=== PATIENT | female | born 1955 | race Caucasian/White ===

== ENCOUNTER 2019-01-27 11:19 | Emergency (ER) | payer SELFPAY ==
--- NOTE | 2019-01-27 11:39 | ER Document Report ---
ED Medical Screen (RME) - General Chief Complaint: Hip Pain Stated Complaint: HIP PAIN Time Seen by Provider: 01/27/19 11:35 Mode of Arrival: Wheelchair Information source: Patient Notes: 63-year-old diabetic patient that just moved to the area last night presents to the emergency department with right hip pain since last March. Reports she is been to multiple providers in [place] for this hip pain. X-rays have been done and nothing is broken. Denies recent trauma. Reports in March she broke some toes on her left foot and that is when the problem started. I have greeted and performed a rapid initial assessment of this patient. A comprehensive ED assessment and evaluation of the patient, analysis of test results and completion of the medical decision making process will be conducted by additional ED providers. Dictation of this chart was performed using voice recognition software; therefore, there may be some unintended grammatical errors. - Related Data Allergies/Adverse Reactions: Penicillins Allergy (Verified 01/27/19 11:29) VOMITING Physical Exam - Vital signs Vitals: Temp Pulse BP Pulse Ox 97.4 F 93 147/80 H 96 01/27/19 11:24 01/27/19 11:24 01/27/19 11:24 01/27/19 11:24 Course - Vital Signs Vital signs: Temp Pulse Resp BP Pulse Ox 97.4 F 93 147/80 H 96 01/27/19 11:24 01/27/19 11:24 01/27/19 11:24 01/27/19 11:24
--- NOTE | 2019-01-27 12:21 | ER Document Report ---
ED Medical Screen (RME) - General Chief Complaint: Hip Pain Stated Complaint: HIP PAIN Time Seen by Provider: 01/27/19 11:35 Mode of Arrival: Wheelchair Notes: 63-year-old female with [id number] diabetes mellitus, hypertension, hyperlipidemia, arthritis, COPD presents to the emergency department with acute on chronic right hip pain. Patient just arrived from [place] last night and states that she has had imaging done on the hip since a fall in March but never got results. Patient states that she did fall in March, broke 3 of her left toes, and has not felt right since. Patient does walk with a walker but per son it takes "a long time" for her to even walk across the room. Patient states that she hears a pop and feels crepitus every time she moves the hip. Also, she complains of dizziness and lightheadedness every time she sits up. Patient has not taken any of her medications for her chronic conditions other than metformin and glipizide for her diabetes. Exam: Well-appearing in no acute distress laying on the stretcher, acute tenderness to palpation of the right hip, regular cardiac rate and rhythm, trace bilateral lower extremity pitting edema I have greeted and performed a rapid initial assessment of this patient. A comprehensive ED assessment and evaluation of the patient, analysis of test results and completion of medical decision making process will be conducted by an additional ED providers. TRAVEL OUTSIDE OF THE [place] IN LAST 30 DAYS: No - Related Data Allergies/Adverse Reactions: Penicillins Allergy (Verified 01/27/19 11:29) VOMITING Home Medications: [facility]/ Past Medical History - Social History Chew tobacco use (# tins/day): No Frequency of alcohol use: Rare Drug Abuse: None Physical Exam - Vital signs Vitals: Temp Pulse BP Pulse Ox 97.4 F 93 147/80 H 96 01/27/19 11:24 01/27/19 11:24 01/27/19 11:24 01/27/19 11:24 Course - Vital Signs Vital signs: Temp Pulse Resp BP Pulse Ox 97.4 F 93 147/80 H 96 01/27/19 11:24 01/27/19 11:24 01/27/19 11:24 01/27/19 11:24
--- NOTE | 2019-01-27 12:50 | RADIOLOGY REPORT (SQ) ---
EXAM DESCRIPTION: HIP RIGHT AP/LATERAL COMPLETED DATE/TIME: 01/27/2019 12:41 pm REASON FOR STUDY: hip pain, difficulty walking COMPARISON: None. NUMBER OF VIEWS: Two views. TECHNIQUE: AP and frog-leg view of the right hip. LIMITATIONS: None. FINDINGS: MINERALIZATION: Normal. RIGHT HIP: There is complete loss of the joint space. There is remodeling of the femoral head. Find ings are consistent with avascular necrosis. OPPOSITE HIP: No fracture or dislocation. No worrisome bone lesions. SOFT TISSUES: No findings. OTHER: No other significant finding. 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 Complet e loss of joint space. TECHNICAL DOCUMENTATION: JOB ID: [id number] [employer]- All Rights Reserved Reading location - IP/workstation name: [email or web address]
[2019-01-27 13:39] LABS: ABSOLUTE EOSINOPHILS # (AUTO) 0.1 10^3/uL (0.0-0.6); ABSOLUTE MONOCYTES (AUTO) 0.3 10^3/uL (0.1-1.4); ABSOLUTE NEUT (AUTO) 5.2 10^3/uL (1.7-8.2); BASOPHILS % (AUTO) 0.7 % (0-2); HEMATOCRIT 29.8 % (36.0-47.0); HEMOGLOBIN 9.2 g/dL (12.0-15.5); LYMPHOCYTES % (AUTO) 14.5 % (13-45); MEAN CORPUSCULAR HEMOGLOBIN 22.4 pg (27.0-33.4); MEAN CORPUSCULAR VOLUME 72 fl (80-97); MONOCYTES % (AUTO) 4.8 % (3-13); PLATELET COUNT 328 10^3/uL (150-450); RED BLOOD COUNT 4.11 10^6/uL (3.72-5.28); RED CELL DISTRIBUTION WIDTH 19.5 % (11.5-14.0); TOTAL CELLS COUNTED % (AUTO) 100 %; WHITE BLOOD COUNT 6.5 10^3/uL (4.0-10.5)
[2019-01-27 14:02] LABS: ALBUMIN 3.3 g/dL (3.5-5.0); ALKALINE PHOSPHATASE 89 U/L (38-126); ANION GAP 10 (5-19); ASPARTATE AMINO TRANSFERASE 16 U/L (14-36); BILIRUBIN,DIRECT 0.1 mg/dL (0.0-0.4); BILIRUBIN,TOTAL 0.2 mg/dL (0.2-1.3); BLOOD UREA NITROGEN 10 mg/dL (7-20); CALCIUM 9.4 mg/dL (8.4-10.2); CARBON DIOXIDE 24 mmol/L (22-30); CHLORIDE 108 mmol/L (98-107); GLUCOSE 207 mg/dL (75-110); POTASSIUM 3.8 mmol/L (3.6-5.0); TOTAL PROTEIN 6.3 g/dL (6.3-8.2)
--- NOTE | 2019-01-27 14:11 | RADIOLOGY REPORT (SQ) ---
EXAM DESCRIPTION: CT RT LOWER EXTREMITY WITHOUT COMPLETED DATE/TIME: 01/27/2019 1:59 pm REASON FOR STUDY: Concern avascular necrosis COMPARISON: CONVENTIONAL RADIOGRAPHS OBTAINED EARLIER THE SAME DAY. TECHNIQUE: CT scan of the right hip performed without intravenous or oral contrast. Images reviewed with soft tissue and bone windows. Reconstructed coronal and sagittal MPR images reviewed. All jamari ges stored on PACS. All CT scanners at this facility use dose modulation, iterative reconstruction, and/or weight based d osing when appropriate to reduce radiation dose to as low as reasonably achievable (ALARA). [facility]: Dose Right [facility]: CareDose [facility]: Dose Right [facility]: Teradose 4D [facility]: [employer] RADIATION DOSE: CT Rad equipment meets quality standard of care and radiation dose reduction techniq ues were employed. CTDIvol: 6.0 mGy. DLP: 214 mGy-cm. mGy. LIMITATIONS: None. FINDINGS: PELVIC BONES: No acute fracture. No worrisome bone lesions. VISUALIZED SPINE: No acute findings. SYMPTOMATIC HIP: There is flattening of the femoral head. There is complete loss of the joint space. Findings most likely represent chronic AVN. This can be confirmed with MRI. OPPOSITE HIP: No acute fracture or dislocation. No worrisome bone lesions. PELVIC SOFT TISSUES: No significant findings. EXTRAPELVIC SOFT TISSUES: No significant findings. OTHER: No other significant finding. IMPRESSION: Severe degenerative changes in the right hip. Findings are most consistent with chronic AVN. TECHNICAL DOCUMENTATION: JOB ID: [id number] Quality ID # [id number]: Final reports with documentation of one or more dose reduction techniques (e.g., Au tomated exposure control, adjustment of the mA and/or kV according to patient size, use of iterative reconstruction technique) 2010 [employer]- All Rights Reserved Reading location - IP/workstation name: [email or web address]
[2019-01-27 14:13] LABS: NT PRO BNP 439 pg/mL (<125)
[2019-01-27 14:14] LABS: TROPONIN I < 0.012 ng/mL
--- NOTE | 2019-01-27 14:58 | ER Document Report ---
ED Hip Pain/Injury - General Chief Complaint: Hip Pain Stated Complaint: HIP PAIN Time Seen by Provider: 01/27/19 11:35 Mode of Arrival: Wheelchair Notes: 63-year-old female with [id number]-rpepaexwc diabetes mellitus, hypertension, hyperlipidemia, arthritis, COPD presents to the emergency department with acute on chronic right hip pain. Patient just arrived from [place] last night and states that she has had imaging done on the hip since a fall in March but never got results. Patient states that she did fall in March, broke 3 of her left toes, and has not felt right since. Patient does walk with a walker but per son it takes "a long time" for her to even walk across the room. Patient states that she hears a pop and feels crepitus every time she moves the hip. Also, she complains of dizziness and lightheadedness every time she sits up. Patient has not taken any of her medications for her chronic conditions other than metformin and glipizide for her diabetes. TRAVEL OUTSIDE OF THE [place] IN LAST 30 DAYS: No - Related Data Allergies/Adverse Reactions: Penicillins Allergy (Verified 01/27/19 11:29) VOMITING Home Medications: [facility]/ Past Medical History - General Information source: Patient - Social History Smoking Status: Former Smoker Chew tobacco use (# tins/day): No Frequency of alcohol use: Rare Drug Abuse: None Family History: None Patient has suicidal ideation: No Patient has homicidal ideation: No - Past Medical History Cardiac Medical History: Reports: Hx Hypertension Pulmonary Medical History: Reports: Hx Bronchitis, Hx COPD Musculoskeletal Medical History: Reports Hx Arthritis Past Surgical History: Reports: Hx Oral Surgery, Hx Tubal Ligation Review of Systems - Review of Systems Constitutional: See HPI EENT: No symptoms reported Cardiovascular: See HPI Respiratory: See HPI Gastrointestinal: See HPI Genitourinary: No symptoms reported Female Genitourinary: No symptoms reported Musculoskeletal: See HPI Skin: No symptoms reported Hematologic/Lymphatic: No symptoms reported Neurological/Psychological: No symptoms reported Physical Exam - Vital signs Vitals: Temp Pulse BP Pulse Ox 97.4 F 93 147/80 H 96 01/27/19 11:24 01/27/19 11:24 01/27/19 11:24 01/27/19 11:24 - Notes Notes: PHYSICAL EXAMINATION: Reviewed vital signs and charting by RN GENERAL: Alert, interacts well. No acute distress. HEAD: Normocephalic, atraumatic. EYES: Pupils equal and round. Extraocular movements intact. ENT: Oral mucosa moist, tongue midline. NECK: Full range of motion. Trachea midline. LUNGS: Clear to auscultation bilaterally, no wheezes, rales, or rhonchi. No respiratory distress. HEART: Regular rate and rhythm. No murmur ABDOMEN: soft, non-tender. No distention. Bowel sounds present EXTREMITIES: Very limited range of motion with the right lower extremity, pat ient with significant difficulty ambulating with a cane but I did not watch her ambulate acute tenderness to palpation over the greater trochanter, 2+ DP pulse, skin is warm and dry, sensation intact light touch, brisk cap refill right toes PSYCH: Normal affect, normal mood. SKIN: Warm, dry, normal turgor. No rashes or lesions noted. Course - Re-evaluation Re-evalutation: 01/27/19 14:55 Patient presents after just flying in from [place] last night with acute hip pain prompting her son to get her seen. An initial hip x-ray was ordered in triage and she was complaining of lightheadedness so I added some basic lab work. Patient does have a microcytic anemia which is most likely chronic in nature, hemoglobin 9.3. No electrolyte derangements. Patient states that she is not taking her levothyroxine, antihypertensives, or her diabetic medications for quite some time so I am going to give her a 2-week supply of her lev othyroxine and diabetic medication since she knows all of her dosing. A CT of the extremity was ordered which did show an avascular necrosis. I spoke with Dr. Keller, orthopedist, who wants to see the patient in his office as soon as possible. Information has been provided. I did add a TSH to her lab work and it is still pending. 01/27/19 15:43 TSH was 3.95, BNP was 435 which could explain the bilateral lower extremity pitting edema. I have explained all of these findings to the patient and given her information for Dr. Keller, education on all of the things we found today, patient understands and agrees to the plan. She is stable for discharge. - Vital Signs Vital signs: Temp Pulse Resp BP Pulse Ox 97.4 F 93 147/80 H 96 11/13/19 11:24 01/27/19 11:24 01/27/19 11:24 01/27/19 11:24 - Laboratory Result Diagrams: 01/27/19 13:02 01/27/19 13:02 Laboratory results interpreted by me: 01/27/19 01/27/19 01/27/19 13:02 13:02 13:02 Hgb 9.2 L Hct 29.8 L MCV 72 L MCH 22.4 L MCHC 31.0 L RDW 19.5 H Seg Neutrophils % 79.0 H Chloride 108 H Glucose 207 H NT-Pro-B Natriuret Pep 439 H Albumin 3.3 L Discharge - Discharge Clinical Impression: Osteonecrosis of right hip, Weakness Anemia Qualifiers: Anemia type: unspecified type Qualified Code(s): D64.9 - Anemia, unspecified Condition: Good Disposition: HOME, SELF-CARE Additional Instructions: You were seen in the emergency department this afternoon for right hip pain after imaging your leg it shows that you have a condition called avascular necrosis. This is not an emergent surgical condition but it is important that you follow-up promptly with orthopedics. I have provided information for Dr. Keller below. I have also provided you with crutches and it is important that you do not bear full weight on your leg if any at all. Also, I have given you a 2-week refill on some of your prescriptions. Of note, your TSH level was normal here today. Your blood sugar was elevated. You will have to establish primary care to manage her hypertension. Please return to the emergency department if you develop acute shortness of breath, severe crushing chest pain, intractable nausea or vomiting, you pass out, or you have any other concerning symptoms. Prescriptions: Glyburide [Diabeta 5 mg Tablet] 5 mg PO BID #28 tablet Levothyroxine Sodium 150 mcg PO DAILY #14 tablet Metformin HCl 850 mg PO DAILY #28 tablet Referrals: ELI KELLER JR, DO [ACTIVE PROVISIONAL STAFF] - 01/28/19 9:00 am
[2019-01-27 16:04] VITALS: BP 150/82
--- NOTE | 2019-01-27 23:33 | EKG REPORT ---
SEVERITY:- ABNORMAL ECG - UNKNOWN RHYTHM, IRREGULAR RATE 82-165 CONSIDER LEFT VENTRICULAR HYPERTROPHY PROLONGED QT INTERVAL : Confirmed by: Viola Kang MD 27-Jan-2019 23:31:44
== END 2019-01-27 16:12 | disposition home or self-care (01) ==
LOC: ER 11:19
DX: M87.9 Osteonecrosis, unspecified (principal); R53.1 Weakness; D64.9 Anemia, unspecified; M25.551 Pain in right hip; E11.9 Type 2 diabetes mellitus without complications; I10 Essential (primary) hypertension; E78.5 Hyperlipidemia, unspecified; J44.9 Chronic obstructive pulmonary disease, unspecified; Z79.4 Long term (current) use of insulin; Z88.0 Allergy status to penicillin; Z98.51 Tubal ligation status
CPT/HCPCS: 36415; 80053; 83880; 84443; 84484; 85025; 93005; 93010

== ENCOUNTER → 2019-05-26 | Outpatient (CLI) | payer BC ==
[2019-05-26 13:55] LABS: ABSOLUTE EOSINOPHILS # (AUTO) 0.1 10^3/uL (0.0-0.6); ABSOLUTE LYMPHOCYTES (AUTO) 1.3 10^3/uL (0.5-4.7); ABSOLUTE MONOCYTES (AUTO) 0.3 10^3/uL (0.1-1.4); ABSOLUTE NEUT (AUTO) 3.9 10^3/uL (1.7-8.2); BASOPHILS % (AUTO) 0.6 % (0-2); EOSINOPHILS % (AUTO) 1.9 % (0-6); HEMATOCRIT 35.7 % (36.0-47.0); HEMOGLOBIN 12.1 g/dL (12.0-15.5); LYMPHOCYTES % (AUTO) 23.1 % (13-45); MEAN CORPUSCULAR HEMOGLOBIN 29.1 pg (27.0-33.4); MEAN CORPUSCULAR HGB CONC 33.8 g/dL (32.0-36.0); MEAN CORPUSCULAR VOLUME 86 fl (80-97); MONOCYTES % (AUTO) 5.7 % (3-13); PLATELET COUNT 301 10^3/uL (150-450); RED BLOOD COUNT 4.15 10^6/uL (3.72-5.28); RED CELL DISTRIBUTION WIDTH 16.8 % (11.5-14.0); SEGMENTED NEUTROPHILS % (AUTO) 68.7 % (42-78); TOTAL CELLS COUNTED % (AUTO) 100 %; WHITE BLOOD COUNT 5.7 10^3/uL (4.0-10.5)
[2019-05-26 14:01] LABS: APPEARANCE,URINE SLIGHTLY-CLOUDY; BILIRUBIN,URINE NEGATIVE (NEGATIVE); COLOR,URINE YELLOW; GLUCOSE, URINE NEGATIVE (NEGATIVE); KETONES,URINE NEGATIVE (NEGATIVE); LEUKOCYTE ESTERASE,URINE TRACE (NEGATIVE); NITRITE,URINE NEGATIVE (NEGATIVE); PROTEIN,URINE NEGATIVE (NEGATIVE); URINE SPECIFIC GRAVITY 1.019; UROBILINOGEN,URINE NEGATIVE mg/dL (<2.0)
--- NOTE | 2019-05-26 14:02 | RADIOLOGY REPORT (SQ) ---
EXAM DESCRIPTION: CHEST PA/LATERAL COMPLETED DATE/TIME: 05/26/2019 1:47 pm REASON FOR STUDY: PRE-OP COMPARISON: None. EXAM PARAMETERS: NUMBER OF VIEWS: two views TECHNIQUE: Digital Frontal and Lateral radiographic views of the chest acquired. RADIATION DOSE: NA LIMITATIONS: none FINDINGS: LUNGS AND PLEURA: No opacities, masses or pneumothorax. No pleural effusion. MEDIASTINUM AND HILAR STRUCTURES: No masses or contour abnormalities. HEART AND VASCULAR STRUCTURES: Heart normal size. No evidence for failure. BONES: Multiple healed upper right rib fractures. HARDWARE: None in the chest. OTHER: Moderate size hiatal hernia. IMPRESSION: Hiatal hernia. No other significant findings. TECHNICAL DOCUMENTATION: JOB ID: [id number] 2010 [employer]- All Rights Reserved Reading location - IP/workstation name: [email or web address]
[2019-05-26 14:11] LABS: ADD MANUAL MICROSCOPIC YES
[2019-05-26 14:12] LABS: RBC,URINE 0-1 /HPF
[2019-05-26 14:18] LABS: ANION GAP 12 (5-19); BLOOD UREA NITROGEN 18 mg/dL (7-20); C-REACTIVE PROTEIN 8.3 mg/L (<10.0); CARBON DIOXIDE 24 mmol/L (22-30); CHLORIDE 101 mmol/L (98-107); GLUCOSE 89 mg/dL (75-110); POTASSIUM 4.9 mmol/L (3.6-5.0)
[2019-05-26 14:23] LABS: PREALBUMIN 22.4 mg/dL (17.6-36.0)
[2019-05-26 14:36] LABS: ERYTHROCYTE SEDIMENTATION RATE 30 mm/hr (0-30)
--- NOTE | 2019-05-26 17:28 | EKG REPORT ---
SEVERITY:- ABNORMAL ECG - SINUS RHYTHM PROBABLE ANTEROSEPTAL INFARCT, AGE INDETERM : Confirmed by: Jacy Guadarrama 26-May-2019 17:27:25
== END ==
LOC: OD 12:55
PROVIDERS: ATTEND Orthopaedic Surgery
DX: Z01.818 Encounter for other preprocedural examination (principal); E11.9 Type 2 diabetes mellitus without complications; R94.31 Abnormal electrocardiogram [ECG] [EKG]; I10 Essential (primary) hypertension
CPT/HCPCS: 36415; 71046; 80048; 81001; 82040; 82306; 83036; 84134; 85025; 85652; 86140; 93005; 93010

== ENCOUNTER → 2019-05-27 | Outpatient (CLI) | payer BC ==
[~2019-05-27] MED LIST: ACETAMINOPHEN 325 MG TABLET PO PRN; CEFAZOLIN SODIUM 2 GM in DEXTROSE 5%-WATER 100 ML IV PRN; CELECOXIB 200 MG CAPSULE PO PRN; GABAPENTIN 100 MG CAPSULE PO PRN; LACTATED RINGERS 1000 ML IV PRN; LIDOCAINE 0.5% INJ-PF (5 MG/ML) 50 ML SDV SUBCUT PRN; ONDANSETRON HCL INJ/PF 4 MG/2 ML SDV IV PRN; OXYCODONE HCL SR 10 MG TABLET PO PRN; SCOPOLAMINE HYDROBROMIDE 1.5 MG PATCH.TD72 TD PRN; TRANEXAMIC ACID INJ/PF 1,000 MG/10 ML SDV IV PRN; VANCOMYCIN HCL 1,000 MG in DEXTROSE 5%-WATER 250 ML IV PRN
== END ==
LOC: OD 11:30 → EDSTATUS 06-03 09:45
PROVIDERS: ATTEND Orthopaedic Surgery
DX: Z53.9 Procedure and treatment not carried out, unspecified reason (principal)
CPT/HCPCS: J0690; J3370; J7060

== ENCOUNTER 2019-06-28 17:17 | Emergency (ER) | payer BC ==
--- NOTE | 2019-06-28 17:38 | ER Document Report ---
ED Medical Screen (RME) - General Chief Complaint: Abdominal Pain Stated Complaint: ABDOMINAL PAIN Time Seen by Provider: 06/28/19 17:36 Primary Care Provider: SUBHA SANCHEZ DO [Primary Care Provider] - Follow up as needed Notes: HPI: 64-year-old female with history of COPD, anemia, diet-controlled diabetes presenting for evaluation of an episode of vomiting yesterday. Patient states it appeared to be coffee-ground. Patient states she does take iron tablets daily. States she always has dark tarry stools because of the iron tablets. Complains of mild epigastric abdominal discomfort. Has not had any vomiting or diarrhea today. Patient states she does take Prilosec daily I have greeted and performed a rapid initial assessment of this patient. A comprehensive ED assessment and evaluation of the patient, analysis of test results and completion of the medical decision making process will be conducted by additional ED providers PHYSICAL EXAMINATION: Minimal tenderness in the epigastric region on palpation. No right lower quadrant pain no right upper quadrant pain on palpation, lung sounds are clear to auscultation regular rate and rhythm I have greeted and performed a rapid initial assessment of this patient. A comprehensive ED assessment and evaluation of the patient, analysis of test results and completion of medical decision making process will be conducted by an additional ED providers. TRAVEL OUTSIDE OF THE [place] IN LAST 30 DAYS: No - Related Data Allergies/Adverse Reactions: Penicillins Adverse Reaction (Verified 06/28/19 17:34) GI upset Past Medical History - Past Medical History Cardiac Medical History: Reports: Hx Hypertension Denies: Hx Atrial Fibrillation, Hx Congestive Heart Failure, Hx Coronary Artery Disease, Hx Heart Attack, Hx Hypercholesterolemia, Hx Peripheral Vascular Disease, Hx Heart Murmur Pulmonary Medical History: Denies: Hx Asthma, Hx Bronchitis, Hx COPD, Hx Sleep Apnea Neurological Medical History: Denies: Hx Cerebrovascular Accident, Hx Seizures Endocrine Medical History: Denies: Hx Graves' Disease, Hx Hyperthyroidism, Hx Hypothyroidism Renal/ Medical History: Denies: Hx Kidney Stones Malignancy Medical History: GI Medical History: Denies: Hx Gastroesophageal Reflux Disease Musculoskeltal Medical History: Reports Hx Arthritis, Denies Hx Fibromyalgia, Denies Hx Muscular Dystrophy, Denies Hx Systemic Lupus Erythematosus Psychiatric Medical History: Denies: Hx Bipolar Disorder, Hx Depression, Hx Post Traumatic Stress Disorder Traumatic Medical History: Denies: Hx Fractures Infectious Medical History: Past Surgical History: Reports: Hx Oral Surgery, Hx Tubal Ligation. Denies: Hx Appendectomy, Hx Bowel Surgery, Hx Section, Hx Cholecystectomy, Hx Coronary Artery Bypass Graft, Hx Gastric Bypass Surgery, Hx Herniorrhaphy, Hx Hysterectomy, Hx Mastectomy, Hx Pacemaker, Hx Tonsillectomy Physical Exam - Vital signs Vitals: Temp Pulse Resp BP Pulse Ox 98.3 F 84 16 136/82 H 96 06/28/19 17:23 06/28/19 17:23 06/28/19 17:23 06/28/19 17:23 06/28/19 17:23 Course - Vital Signs Vital signs: Temp Pulse Resp BP Pulse Ox 98.3 F 84 16 136/82 H 96 06/28/19 17:23 06/28/19 17:23 06/28/19 17:23 06/28/19 17:23 06/28/19 17:23 Doctor's Discharge - Discharge Referrals: SUBHA SANCHEZ DO [Primary Care Provider] - Follow up as needed
[2019-06-28 18:02] LABS: ABSOLUTE BASOPHILS # (AUTO) 0.1 10^3/uL (0.0-0.2); ABSOLUTE EOSINOPHILS # (AUTO) 0.1 10^3/uL (0.0-0.6); ABSOLUTE LYMPHOCYTES (AUTO) 2.3 10^3/uL (0.5-4.7); ABSOLUTE MONOCYTES (AUTO) 0.7 10^3/uL (0.1-1.4); ABSOLUTE NEUT (AUTO) 7.6 10^3/uL (1.7-8.2); BASOPHILS % (AUTO) 0.5 % (0-2); EOSINOPHILS % (AUTO) 0.9 % (0-6); HEMATOCRIT 35.3 % (36.0-47.0); HEMOGLOBIN 12.1 g/dL (12.0-15.5); LYMPHOCYTES % (AUTO) 21.5 % (13-45); MEAN CORPUSCULAR HEMOGLOBIN 30.5 pg (27.0-33.4); MEAN CORPUSCULAR HGB CONC 34.4 g/dL (32.0-36.0); MEAN CORPUSCULAR VOLUME 89 fl (80-97); MONOCYTES % (AUTO) 6.2 % (3-13); PLATELET COUNT 339 10^3/uL (150-450); RED BLOOD COUNT 3.97 10^6/uL (3.72-5.28); RED CELL DISTRIBUTION WIDTH 17.7 % (11.5-14.0); SEGMENTED NEUTROPHILS % (AUTO) 70.9 % (42-78); TOTAL CELLS COUNTED % (AUTO) 100 %; WHITE BLOOD COUNT 10.7 10^3/uL (4.0-10.5)
[2019-06-28 18:07] LABS: INTERNATIONAL RATION (INR) 1.02; PROTHROMBIN TIME 13.4 SEC (11.4-15.4)
[2019-06-28 18:22] LABS: ALBUMIN 3.9 g/dL (3.5-5.0); ALKALINE PHOSPHATASE 86 U/L (38-126); ANION GAP 6 (5-19); ASPARTATE AMINO TRANSFERASE 22 U/L (14-36); BILIRUBIN,TOTAL 0.3 mg/dL (0.2-1.3); BLOOD UREA NITROGEN 20 mg/dL (7-20); CALCIUM 9.6 mg/dL (8.4-10.2); CARBON DIOXIDE 23 mmol/L (22-30); CHLORIDE 106 mmol/L (98-107); GLUCOSE 110 mg/dL (75-110); POTASSIUM 4.5 mmol/L (3.6-5.0); TOTAL PROTEIN 6.9 g/dL (6.3-8.2)
[2019-06-28] MEDS ORDERED: LIDOCAINE 2% VISCOUS SOLN 15 ML UDCUP PO ONE (19:12)
[2019-06-28] MEDS ORDERED: METOCLOPRAMIDE HCL ORAL SOLN 10 MG/10 ML UDCUP PO ONE (19:12)
[2019-06-28] MEDS ORDERED: MAG HYDROX/AL HYDROX/SIMETH SUSP 30 ML UDCUP PO ONE (19:12)
--- NOTE | 2019-06-28 19:26 | ER Document Report ---
Entered by DOROTHEA VILLATORO SCRIBE 06/28/19 2910 Acting as scribe for:LUIS ARHCIBALD DO ED GI/ - General Chief Complaint: Abdominal Pain Stated Complaint: ABDOMINAL PAIN Time Seen by Provider: 06/28/19 17:36 Primary Care Provider: SUBHA SANCHEZ DO [Primary Care Provider] - Follow up as needed Mode of Arrival: Ambulatory Information source: Patient Notes: This 64 year old female patient presents to the ED today with complaints of epig astric pain that started x1 day ago. Patient describes the pain as a burning sensation. She notes associated dark emesis that appear to be coffee grounds. She also reports RUQ that started earlier today, but has since resolved. She reports a history of GERD, HTN, HLD, hyperthyroidism, and chronic right hip pain. Denies history of ulcer disease. Denies fever or chills. TRAVEL OUTSIDE OF THE [place] IN LAST 30 DAYS: No - Related Data Allergies/Adverse Reactions: Penicillins Adverse Reaction (Verified 06/28/19 17:34) GI upset Home Medications: melatonin, synthroid, fe, cozaar, vit D, metoprolol, atorvas tatin, tramadol, prilosec, albuterol Past Medical History - General Information source: Patient - Social History Smoking Status: Former Smoker Cigarette use (# per day): No Chew tobacco use (# tins/day): No Smoking Education Provided: No Frequency of alcohol use: Occasional Drug Abuse: None Family History: Reviewed & Not Pertinent Patient has suicidal ideation: No Patient has homicidal ideation: No - Past Medical History Cardiac Medical History: Reports: Hx Hypercholesterolemia, Hx Hypertension Pulmonary Medical History: Neurological Medical History: Endocrine Medical History: Reports: Hx Diabetes Mellitus Type 2, Hx Hype rthyroidism Renal/ Medical History: Malignancy Medical History: GI Medical History: Reports: Hx Gastroesophageal Reflux Disease Musculoskeletal Medical History: Reports Hx Arthritis Psychiatric Medical History: Infectious Medical History: Past Surgical History: Reports: Hx Oral Surgery, Hx Tubal Ligation Review of Systems - Review of Systems Constitutional: See HPI. denies: Chills, Fever EENT: No symptoms reported Cardiovascular: No symptoms reported Respiratory: No symptoms reported Gastrointestinal: See HPI, Abdominal pain, Nausea, Vomiting Genitourinary: No symptoms reported Female Genitourinary: No symptoms reported Musculoskeletal: No symptoms reported Skin: No symptoms reported Hematologic/Lymphatic: No symptoms reported Neurological/Psychological: No symptoms reported -: Yes All other systems reviewed and negative Physical Exam - Vital signs Vitals: Temp Pulse Resp BP Pulse Ox 98.3 F 84 16 136/82 H 96 06/28/19 17:23 06/28/19 17:23 06/28/19 17:23 06/28/19 17:23 06/28/19 17:23 - General General appearance: Alert In distress: None - HEENT Head: Normocephalic, Atraumatic Eyes: Normal Pupils: PERRL - Respiratory Respiratory status: No respiratory distress Chest status: Nontender Breath sounds: Normal Chest palpation: Normal - Cardiovascular Rhythm: Regular Heart sounds: Normal auscultation Murmur: No Friction rub: No Gallop: None auscultated - Abdominal Inspection: Normal Distension: No distension Bowel sounds: Normal Tenderness: Tender - Mildly palpaple and reproducible epigastric tenderness Organomegaly: No organomegaly - Back Back: Normal, Nontender - Extremities General upper extremity: Normal inspection General lower extremity: Normal inspection. No: Edema - Neurological Neuro grossly intact: Yes Neena Coma Scale Eye Opening: Spontaneous [place] Coma Scale Verbal: Oriented [place] Coma Scale Motor: Obeys Commands Neena Coma Scale Total: 15 - Psychological Associated symptoms: Normal affect, Normal mood - Skin Skin Temperature: Warm Skin Moisture: Dry Skin Color: Normal Course - Re-evaluation Re-evalutation: 06/28/19 19:55 MDM 64 year old female arrives with epigastric burning. She has had 2 episodes of nonbloody, nonbilious emesis since yesterday. Concerned this may have been blood in the emesis. No fever. Hgb is reassuring. - Vital Signs Vital signs: Temp Pulse Resp BP Pulse Ox 98.3 F 84 16 136/82 H 96 06/28/19 17:23 06/28/19 17:23 06/28/19 17:23 06/28/19 17:23 06/28/19 17:23 - Laboratory Result Diagrams: 06/28/19 17:46 06/28/19 17:46 Laboratory results interpreted by me: 06/28/19 06/28/19 06/28/19 17:46 17:46 19:34 WBC 10.7 H Hct 35.3 L RDW 17.7 H Sodium 135.1 L Ur Leukocyte Esterase TRACE H - EKG Interpretation by Me EKG shows normal: Sinus rhythm Rate: Normal Rhythm: NSR - NSR Nl [place] [address] elevation or depression my interpretaiton. Discharge - Discharge Clinical Impression: Dyspepsia Vomiting Qualifiers: Vomiting type: unspecified Vomiting Intractability: non-intractable Nausea presence: with nausea Qualified Code(s): R11.2 - Nausea with vomiting, unspecified Condition: Good Disposition: HOME, SELF-CARE Instructions: Antinausea Medication ([facility]), Clear Liquid Diet ([facility]), Vomiting ( [facility]) Additional Instructions: Rest, clear liquids. See your doctor in follow up. Call tomorrow. Please return here for any problems or any concerns. Prescriptions: Ondansetron [Zofran Odt 4 mg Tablet] 1 - 2 tab PO Q4HP PRN #10 tab.rapdis PRN Reason: Referrals: SUBHA SANCHEZ DO [Primary Care Provider] - Follow up as needed I personally performed the services described in the documentation, reviewed and edited the documentation which was dictated to the scribe in my presence, and it accurately records my words and actions.
[2019-06-28 19:59] LABS: APPEARANCE,URINE SLIGHTLY-CLOUDY; BILIRUBIN,URINE NEGATIVE (NEGATIVE); COLOR,URINE YELLOW; GLUCOSE, URINE NEGATIVE (NEGATIVE); KETONES,URINE NEGATIVE (NEGATIVE); LEUKOCYTE ESTERASE,URINE TRACE (NEGATIVE); NITRITE,URINE NEGATIVE (NEGATIVE); PROTEIN,URINE NEGATIVE (NEGATIVE); URINE SPECIFIC GRAVITY 1.018; UROBILINOGEN,URINE NEGATIVE mg/dL (<2.0)
[2019-06-28 20:53] VITALS: BP 111/90
--- NOTE | 2019-06-29 08:12 | EKG REPORT ---
SEVERITY:- NORMAL ECG - SINUS RHYTHM : Confirmed by: Omer Massey MD 29-Jun-2019 08:11:43
== END 2019-06-28 20:52 | disposition home or self-care (01) ==
LOC: ER 17:17
DX: R10.13 Epigastric pain (principal); R11.2 Nausea with vomiting, unspecified; R10.11 Right upper quadrant pain; K21.9 Gastro-esophageal reflux disease without esophagitis; M25.551 Pain in right hip; G89.29 Other chronic pain; Z88.0 Allergy status to penicillin; Z79.899 Other long term (current) drug therapy; Z87.891 Personal history of nicotine dependence; E11.9 Type 2 diabetes mellitus without complications; I10 Essential (primary) hypertension; E78.5 Hyperlipidemia, unspecified; E03.9 Hypothyroidism, unspecified
CPT/HCPCS: 99284; 36415; 83690; 85025; 85610; 80053; 81001; 93005; 93010; J3490

== ENCOUNTER 2019-09-23 07:43 | Day surgery (SDC) | payer BC ==
--- NOTE | 2019-09-20 10:45 | EKG REPORT ---
SEVERITY:- NORMAL ECG - SINUS RHYTHM : Confirmed by: Omer Massey MD 20-Sep-2019 10:43:58
[2019-09-20 10:59] LABS: ABSOLUTE EOSINOPHILS # (AUTO) 0.1 10^3/uL (0.0-0.6); ABSOLUTE LYMPHOCYTES (AUTO) 1.5 10^3/uL (0.5-4.7); ABSOLUTE MONOCYTES (AUTO) 0.5 10^3/uL (0.1-1.4); ABSOLUTE NEUT (AUTO) 5.4 10^3/uL (1.7-8.2); BASOPHILS % (AUTO) 0.5 % (0-2); EOSINOPHILS % (AUTO) 1.8 % (0-6); HEMATOCRIT 39.3 % (36.0-47.0); HEMOGLOBIN 13.2 g/dL (12.0-15.5); LYMPHOCYTES % (AUTO) 20.1 % (13-45); MEAN CORPUSCULAR HGB CONC 33.6 g/dL (32.0-36.0); MEAN CORPUSCULAR VOLUME 92 fl (80-97); MONOCYTES % (AUTO) 6.6 % (3-13); PLATELET COUNT 257 10^3/uL (150-450); RED BLOOD COUNT 4.26 10^6/uL (3.72-5.28); RED CELL DISTRIBUTION WIDTH 13.3 % (11.5-14.0); TOTAL CELLS COUNTED % (AUTO) 100 %; WHITE BLOOD COUNT 7.6 10^3/uL (4.0-10.5)
[2019-09-20 11:26] LABS: ANION GAP 8 (5-19); BLOOD UREA NITROGEN 14 mg/dL (7-20); CALCIUM 9.5 mg/dL (8.4-10.2); CARBON DIOXIDE 25 mmol/L (22-30); CHLORIDE 106 mmol/L (98-107); GLUCOSE 144 mg/dL (75-110); POTASSIUM 4.2 mmol/L (3.6-5.0)
[~2019-09-23 07:43] MED LIST changes: +ACETAMINOPHEN 325 MG TABLET ONE; +CEFAZOLIN 2 GM/D5W RTU 2 GM/50 ML RTUPB IV PRN; +CEFAZOLIN INJ 1 GM VIAL ONE; -CEFAZOLIN SODIUM 2 GM in DEXTROSE 5%-WATER 100 ML IV PRN; +CELECOXIB 200 MG CAPSULE ONE; +GABAPENTIN 100 MG CAPSULE ONE; +OXYCODONE HCL SR 10 MG TABLET PO ONE; +PANTOPRAZOLE SODIUM 20 MG TABLET.DR PO PRN; +SCOPOLAMINE HYDROBROMIDE 1.5 MG PATCH.TD72 ONE; +TRAMADOL HCL 50 MG TABLET ONE; +TRAMADOL HCL 50 MG TABLET PO PRN
[2019-09-23] MEDS ORDERED: PANTOPRAZOLE SODIUM 20 MG TABLET.DR PO ONE ×2 (08:54→16:00)
[2019-09-23] MEDS ORDERED: MIDAZOLAM 2 MG/2 ML INJ ONE (09:47)
[2019-09-23] MEDS ORDERED: PROPOFOL INJ 200 MG/20 ML VIAL IV ONE ×2 (09:47→11:38)
[2019-09-23] MEDS ORDERED: TRANEXAMIC ACID INJ/PF 1,000 MG/10 ML SDV ONE (09:47)
[2019-09-23] MEDS: BUPIVACAINE HCL 0.25 % INJ/PF (2.5 MG/1 ML) 30 ML VIAL ONE ×2 (10:50→11:18)
[2019-09-23] MEDS: KETOROLAC TROMETHAMINE INJ/PF 30 MG/1 ML SDV ONE ×2 (10:51→11:18)
[2019-09-23] MEDS: LIDOCAINE 1% INJ-PF (10 MG/ML) 30 ML SDV ONE ×2 (10:51→11:18)
[2019-09-23] MEDS: VANCOMYCIN HCL INJ 1000 MG VIAL ONE ×2 (10:52→11:18)
[2019-09-23] MEDS ORDERED: DIPHENHYDRAMINE HCL 50 MG/ML VIAL IV PRN (11:03)
[2019-09-23] MEDS ORDERED: FENTANYL CITRATE INJ/PF 100 MCG/2 ML AMPUL IV PRN ×3 (11:03)
[2019-09-23] MEDS ORDERED: MEPERIDINE HCL/PF INJ 25 MG/1 ML DISP.SYRIN IV PRN (11:03)
[2019-09-23] MEDS ORDERED: EPHEDRINE SULFATE INJ 50 MG/1 ML AMPULE ONE (11:37)
--- NOTE | 2019-09-23 12:20 | Operative Report ---
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 Risks include but are not limited to bleeding, infection, anesthesia, , injury to nerve or vessel, pain, scar, leg length inequality, dislocation, future surgery, and blood clots. Patient read through the pre-op counseling form and signed and consented for surgery on their right hip. OPERATIVE PROCEDURE: Patient was brought to the operating room on and underwent spinal anesthesia. 2 grams of Ancef and 1 g of vancomycin was given. After proper anesthesia was obtained, patient was positioned, padded, prepped, and draped in the usual sterile fashion on the operating room table. Appropriate time out was performed. An anterior approach to the hip was undertaken with meticulous hemostasis through the deep interval. A capsulectomy was performed followed by exposure of the femoral neck. The femoral neck was cut in line with the femoral broach and the femoral head was removed. The femoral head was amorphic with soft bone that was difficult to pull out in 1 piece. Much of the superior weightbearing portion was essentially dissolving. We were able to get the femoral head out and sent for pathology. The acetabulum was then exposed with three retractors in an atraumatic fashion. This was found to be oblong with a significantly deficient posterior wall. Soft tissue and osteophytes were removed. Medialization reaming was performed followed by anatomic reaming up to accept a 52 mm acetabulum. Care was taken not to perforate the medial wall or overream given the deficiency posteriorly. Still obtaining a good press-fit was carefully performed and able to be obtained. The wound was irrigated with dilute betadyne solution and the detail mm acetabulum was impacted into correct position and stability checked by manipulating the impaction handle which rocked the pelvis. As a precaution 2 screws were drilled in the superior acetabulum each 40 mm in length. A standard liner was impacted into the shell with good stability. Potential impinging osteophytes were removed. Attention was then directed toward the femur, which was exposed with two retractors in an atraumatic fashion. A bone hook was placed to carefully perform releases along the superior capsule until the femur was safely delivered through the wound. A paper box cutter was utilized followed by lateralization rasping and then broaching up to accept a 4 femur. The patient had recognized femoral retroversion. With a 32 offset neck and a 0 neck length head, stability was good in flexion and extension with equal leg lengths. The real 132 offset femur was impacted into a copiously irrigated femoral canal. A 36 mm ceramic head was impacted on a clean dry femoral taper. The hip was irrigated and reduced, further irrigation with antibiotic solution, betadine solution, then antibiotic solution. Bleeders were coagulated with bovie cautery. The fascia was then closed with number 2 Quill; the subcutaneous tissue closed with interrupted inverted 2-0 monocryl then running 3-0 monocryl subcuticular. A sterile silver dressing was applied. All needle sponge and instrument counts were correct. Patient was awakened from sedation anesthesia and taken to recovery room in good condition. Thank you, Duke Keller DO
[2019-09-23] MEDS ORDERED: ONDANSETRON HCL INJ/PF 4 MG/2 ML SDV ONE (12:59)
--- NOTE | 2019-09-23 13:02 | RADIOLOGY REPORT (SQ) ---
EXAM DESCRIPTION: HIP RIGHT AP/LATERAL IMAGES COMPLETED DATE/TIME: 09/23/2019 12:42 pm REASON FOR STUDY: POST OP RIGHT TOTAL HIP M25.551 PAIN IN RIGHT HIP COMPARISON: 01/27/2019 NUMBER OF VIEWS: Two views. TECHNIQUE: AP pelvis and additional frog-leg view of the right hip. LIMITATIONS: None. FINDINGS: MINERALIZATION: Normal. RIGHT HIP: Status post right total hip arthroplasty. LEFT HIP: No fracture or dislocation. No worrisome bone lesions. PUBIS AND ISCHIUM: No fracture. PELVIS: No fracture. SACRUM: No fracture or dislocation. No worrisome bone lesions. LOWER LUMBAR SPINE: No fracture or dislocation. No worrisome bone lesions. No significant disc disea se. SOFT TISSUES: Subcutaneous gas is not an unexpected finding in the immediate postoperative setting. OTHER: No other significant finding. IMPRESSION: Status post right total hip arthroplasty with expected postsurgical findings. TECHNICAL DOCUMENTATION: JOB ID: [id number] 2010 [employer]- All Rights Reserved Reading location - IP/workstation name: [email or web address]
[2019-09-23] MEDS ORDERED: PHENYLEPHRINE HCL INJ/PF 10 MG/1 ML SDV ONE (13:34)
[2019-09-23] MEDS ORDERED: OXYCODONE HCL IR 5 MG TABLET PO PRN (14:39)
[2019-09-23] MEDS ORDERED: MORPHINE SULFATE 10 MG/ML INJ IV PRN (14:40)
[2019-09-23] MEDS ORDERED: ZOLPIDEM TARTRATE 5 MG TABLET PO PRN (14:47)
[2019-09-23] MEDS ORDERED: DIPHENHYDRAMINE HCL 25 MG CAPSULE PO PRN (14:47)
[2019-09-23] MEDS ORDERED: DOCUSATE SODIUM 100 MG CAPSULE PO PRN (14:48)
[2019-09-23] MEDS ORDERED: NORMAL SALINE 1000 ML 1,000 ML IV PRN (14:48)
[2019-09-23] MEDS ORDERED: ONDANSETRON 4 MG TAB.RAPDIS PO PRN (14:50)
--- NOTE | 2019-09-23 16:03 | RADIOLOGY REPORT (SQ) ---
EXAM DESCRIPTION: NO CHG FLUORO; HIP IN OPERATING RM IMAGES COMPLETED DATE/TIME: 09/23/2019 1:02 pm REASON FOR STUDY: RIGHT HIP ARTHROPLASTY ASSISTED WITH FLUORO IN OR COMPARISON: None. FLUOROSCOPY TIME: No recordable fluoro off 2 Images saved to PACS LIMITATIONS: None. PROCEDURE: Right hip arthroplasty FINDINGS: Images from fluoro document the procedure. IMPRESSION: Right hip arthroplasty. Refer to operative note for further information. COMMENT: PQRS 6045F: Fluoroscopy time of the procedure is documented in the report. TECHNICAL DOCUMENTATION: JOB ID: [id number] 2010 [employer]- All Rights Reserved Reading location - IP/workstation name: [email or web address]
--- NOTE | 2019-09-23 16:03 | RADIOLOGY REPORT (SQ) ---
EXAM DESCRIPTION: NO CHG FLUORO; HIP IN OPERATING RM IMAGES COMPLETED DATE/TIME: 09/23/2019 1:02 pm REASON FOR STUDY: RIGHT HIP ARTHROPLASTY ASSISTED WITH FLUORO IN OR COMPARISON: None. FLUOROSCOPY TIME: No recordable fluoro off 2 Images saved to PACS LIMITATIONS: None. PROCEDURE: Right hip arthroplasty FINDINGS: Images from fluoro document the procedure. IMPRESSION: Right hip arthroplasty. Refer to operative note for further information. COMMENT: PQRS 6045F: Fluoroscopy time of the procedure is documented in the report. TECHNICAL DOCUMENTATION: JOB ID: [id number] 2010 [employer]- All Rights Reserved Reading location - IP/workstation name: [email or web address]
[2019-09-23] MEDS: GABAPENTIN 100 MG CAPSULE PO SCH (17:11)
[2019-09-23] MEDS ORDERED: SERTRALINE HCL 50 MG TABLET PO SCH (18:00)
[2019-09-23] MEDS: TRAMADOL HCL 50 MG TABLET PO PRN (20:22)
[2019-09-23] MEDS: OXYCODONE HCL IR 5 MG TABLET PO PRN (21:22)
[2019-09-23] MEDS: ACETAMINOPHEN 325 MG TABLET PO SCH (21:26)
[2019-09-23] MEDS: KETOROLAC TROMETHAMINE INJ/PF 30 MG/1 ML SDV IV SCH (21:31)
[2019-09-23] MEDS: CEFAZOLIN SODIUM 2 GM in DEXTROSE 5%-WATER 100 ML IV SCH (21:35)
[2019-09-23] MEDS ORDERED: ATORVASTATIN CALCIUM 40 MG TABLET PO SCH (22:00)
[2019-09-23] MEDS ORDERED: MELATONIN 30 MG PO SCH (22:00)
[2019-09-23] MEDS ORDERED: METOPROLOL TARTRATE 100 MG TABLET PO SCH (22:00)
[2019-09-24] MEDS: ACETAMINOPHEN 325 MG TABLET PO SCH (06:12)
[2019-09-24] MEDS: KETOROLAC TROMETHAMINE INJ/PF 30 MG/1 ML SDV IV SCH (06:17)
[2019-09-24] MEDS: CEFAZOLIN SODIUM 2 GM in DEXTROSE 5%-WATER 100 ML IV SCH (06:21)
--- NOTE | 2019-09-24 07:30 | Discharge Summary ---
Discharge Summary (SDC) - Discharge Final Diagnosis: Right hip avascular necrosis status post collapse Date of Surgery: 09/23/19 Discharge Date: 09/24/19 Condition: Stable Treatment or Instructions: Full details of postoperative instructions have been provided to the patient in the clinic. Additionally they should maintain their bandage in place for 5 to 7 days, and then changed to a dry dressing. They can take showers with this occlusive dressing but any further dressing should also be occlusive. No showers with the wound unprotected until cleared by me in the clinic. If the bandage falls off early or become saturated they can change as needed to another occlusive dressing. Referrals: ELI KELLER JR, [ACTIVE PROVISIONAL STAFF] - 10/01/19 9:15 am Discharge Diet: As Tolerated Respiratory Treatments at Home: Deep Breathing/Coughing Discharge Activity: Activity As Tolerated, No Driving, Keep Legs Elevated, No Lifting/Push/Pulling, Slowly Increase Activity, No tub bath, Walk Frequently Home Care Assistance: Provided by Family Adaptive Devices on Discharge: Rolling Walker, Bedside Commode Report the Following to Your Physician Immediately: Shortness of Breath, Fever over 101 Degrees, Unusual Bleeding, Drainage-Yellow
[2019-09-24] MEDS: OXYCODONE HCL IR 5 MG TABLET PO PRN (08:42)
[2019-09-24] MEDS ORDERED: LOSARTAN POTASSIUM 50 MG TABLET PO SCH (10:00)
[2019-09-24] MEDS ORDERED: METFORMIN HCL 500 MG TABLET PO SCH (10:00)
[2019-09-24] MEDS ORDERED: ASPIRIN 325 MG TABLET PO SCH (10:00)
[2019-09-24] MEDS ORDERED: CELECOXIB 200 MG CAPSULE PO SCH (10:00)
[2019-09-24] MEDS ORDERED: POLYETHYLENE GLYCOL 3350 POWDER 17 GM/1 PACKET PO SCH (10:00)
[2019-09-24] MEDS ORDERED: TURMERIC 400 MG PO SCH (10:00)
[2019-09-24] MEDS ORDERED: LEVOTHYROXINE SODIUM 0.15 MG TABLET PO SCH (10:00)
[2019-09-24] MEDS ORDERED: (PENDING PHARMACY ID) (Mv-Min/Iron/Folic/Calcium/Vitk [Women's Multivitamin Tablet] 1 TAB) PO SCH (10:00)
[2019-09-24] MEDS: GABAPENTIN 100 MG CAPSULE PO SCH (10:13)
[2019-09-24] MEDS: TRAMADOL HCL 50 MG TABLET PO PRN (11:53)
[2019-09-24 12:30] VITALS: BP 111/80
== END 2019-09-24 13:00 | disposition home health service (06) ==
LOC: OROUT 07:43 → 4S 13:58 → OROUT 09-24 13:00
PROVIDERS: ATTEND Orthopaedic Surgery
DX: M87.051 Idiopathic aseptic necrosis of right femur (principal); M25.551 Pain in right hip; E11.9 Type 2 diabetes mellitus without complications; I10 Essential (primary) hypertension; Z87.11 Personal history of peptic ulcer disease; Z79.84 Long term (current) use of oral hypoglycemic drugs; Z79.899 Other long term (current) drug therapy; Z79.82 Long term (current) use of aspirin; Z88.0 Allergy status to penicillin
CPT/HCPCS: 27130 ×2; 93005; 36415 ×2; 82962; 85025; 87635; 80048; 83036; 88304 ×2; 88311; 73502; 73501; 93010; 97530 ×2; 97110; 97116; 97162; 97535; 97165; 01214; J2250; J0690 ×2; J3490 ×4; J1885 ×2; J2270; J2370; J2405; J7060 ×3; J7030; J2704; J3370; C9803